=== PATIENT | male | born 1975 | race Two or more races ===

== ENCOUNTER 2020-11-02 11:11 | Emergency (ER) | payer SELFPAY ==
[2020-11-02 11:20] VITALS: BP 134/89; PULSE 89; RESP 18; TEMP 36.9; O2SAT 95; BMI 29.5
--- NOTE | 2020-11-02 11:32 | ED.EYEPROB ---
HPI - Eye Problem General Chief complaint: Eye Problems Stated complaint: EYE ISSUE Time Seen by Provider: 11/02/20 11:21 Source: patient Mode of arrival: ambulatory Limitations: no limitations History of Present Illness HPI Narrative: 45-year-old male who presents emergency department for evaluation of swelling and redness of both eyes, right greater than left. The patient states that he does notice redness and swelling of his left eye x2 days. He states that initially the right eye was slightly red and now the redness is gotten worse, with swelling of the eye. States that initially had a clear discharge but now the discharge is green. He states that the left eye is also red and swollen. He states that he was fishing using worms and ?power bait ?. He states that he dipped to the resin remover the our base and then accidentally splashed some fluid in his right eye the believes that this may be the cause of his infection. He denies rhinorrhea, sore throat, cough, chest pain, shortness of breath, fatigue, fever, chills, myalgias arthralgias. Related Data Previous Rx's Medication Instructions Recorded oxycodone 5 mg PO Q4H PRN #14 tab 11/02/20 prednisone 60 mg PO DAILY 5 Days #15 tab 11/02/20 sulfacetamide sodium [Bleph-10] 1 drp OPHTHALMIC (EYE) Q4H #15 ml 11/02/20 Allergies Allergy/AdvReac Type Severity Reaction Status Date / Time No Known Allergies Allergy Verified 11/02/20 11:21 Review of Systems Review of Systems: Yes all other systems are reviewed and are negative Constitutional: Constitutional: Reports as per HPI Eyes: Eyes: Reports as per HPI ENT: Reports as per HPI Cardiovascular: Cardiovascular: Reports as per HPI Respiratory: Respiratory: Reports as per HPI Gastrointestinal: Gastrointestinal: Reports as per HPI Genitourinary: Genitourinary: Reports as per HPI Musculoskeletal: Musculoskeletal: Reports as per HPI Integumentary/Breasts: Skin/Breast: Reports as per HPI Neurologic: Reports as per HPI Psychiatric: Psychiatric: Reports as per HPI Allergic/Immunologic: Allergic/Immunologic: Reports as per HPI PMF Past Medical History Attestation statement: The following information was validated with the patient. [facility] Narrative: No significant past medical history. Patient does smoke cigarettes. He occasionally drinks alcohol. He denies drug use. Medical History No known health problems Social History Social History Advance Directives: Yes Advance Directives Information Provided: No Advance Directives on File: No Physical Exam Vital Signs: Vital Signs: Last Vital Signs Temp 98.4 F 11/02/20 11:20 Pulse 89 11/02/20 11:20 Resp 18 11/02/20 11:20 BP 134/89 11/02/20 11:20 Pulse Ox 95 11/02/20 11:20 Body Mass Index 29.5 Const: General: cooperative Nutritional Appearance: average body habitus Orientation/consciousness: oriented to person and oriented to place Limitations: no limitations HENMT: Head: Yes normal to inspection, Yes normocephalic and Yes atraumatic Ears: external ears normal General nose exam: Normal external nose present Face and sinus: Yes normal facial exam Mouth: Normal oral and palatal mucosa present Throat: Yes posterior oropharynx normal Eyes: Alignment and Position: alignment normal Periorbital: periorbital findings normal Eyelids: Yes eyelid abnormality (Swollen right upper eyelid compared to left) Conjunctivae: conjunctival abnormal right conjunctival chemosis, conjunctival injection and discharge and left conjunctival injection and discharge Sclerae: sclerae normal Pupils: Equal, round and reactive pupils present Direct Ophthalmoscopy: normal light reflex Neck: Neck: Yes normal visual inspection and Yes supple Thyroid: Thyroid normal Chest: Chest palpation & inspection: normal inspection of the chest and normal palpation of entire chest wall Resp: Effort & Inspection: normal respiratory effort and able to speak in complete sentences Auscultation: clear to auscultation bilaterally, no crackles, no rales and no rhonchi Cardio: Rate: regular rate Rhythm: regular rhythm Heart sounds: S1 normal heart sound present, S2 normal heart sound present and no murmurs GI: Inspection: Yes normal to inspection Palpation (GI): Soft to palpation, nontender and no guarding Auscultation: normal bowel sounds : General: Yes no CVA tenderness Back/Spine/Pelvis: Back: no CVA tenderness Cervical Spine: normal cervical lordosis Thoracic/Lumbar Spine: thoracic and lumbar spine normal to inspection Skin: General skin exam: no rashes or lesions noted Lesions: no lesions Rashes: no rashes Trauma: no lacerations or abrasions Neuro: General: oriented to person and oriented to place Cranial nerves: Yes CN's II-XII intact bilaterally, Yes Equal, round and reactive pupils present and Yes Bilaterally intact EOM present Cognition (Neuro): normal cognition Motor exam (neuro): 5/5 motor strength present throughout Extrem: Right upper extremity: normal to inspection and full ROM Psych: Appearance: grossly normal and well kempt Mental Status: mental status grossly normal Speech and movement: Normal speech and movement present Affect: normal affect Attitude: cooperative Thought process: Normal thought process present Thought content: Normal thought content present Insight: Good insight present (Psych) Judgement: Good judgement present (Psych) Course Course Course Narrative: 45-year-old male who presents emergency department for evaluation of erythema, swelling and discharge both eyes, right greater than left. Physical examination is consistent with acute conjunctivitis. Patient was started on Bleph 10 1 drop 4 times a day for 10 days. He was also started on oral prednisone 40 mg once a day for 5 days to help reduce the swelling of his conjunctiva. Patient did request pain medications as well and he was prescribed oxycodone [place] PAT search revealed no narcotic prescriptions over 1 year search interval Discharge Plan Discharge Patient Disposition: Home, Self-Care Instructions: Conjunctivitis (ED) Additional Instructions: Use the sulfacetamide sodium eyedrops (Bleph 10) 1 drop every 4 hours to both eyes while you are awake. Use this for 10 days. Take prednisone 20 mg pills, 3 pills once a day for 5 days. This is a strong anti-inflammatory pain medication. Do not take any other anti-inflammatory medications such as ibuprofen, Motrin, Advil, naproxen, Aleve or aspirin. Take Tylenol (acetaminophen) 500 mg pills, 2 pills every 4 to 6 hours as needed for pain. For pain not relieved by Tylenol or prednisone take oxycodone 5 mg pills, 1 pill every 4-6 hours as needed for pain. Oxycodone is a narcotic medication and can be addicting. If your concerned about addiction do not get the medication filled or ask the pharmacist for less pills than prescribed. This medication will make you sleepy. Do not work or drive while taking this medication. Follow-up with our on-call interventional physician in 2 days. Call his office on Wednesday morning to make a follow-up appointment Please return to the emergency department if your symptoms get worse or if you develop any symptoms that are concerning to you. Prescriptions: New sulfacetamide sodium [Bleph-10] 10 % drops 1 drp ophthalmic (eye) Q4H Qty: 15 RF: 0 prednisone 20 mg tablet 60 mg PO DAILY 5 Days Qty: 15 RF: 0 oxycodone 5 mg tablet 5 mg PO Q4H PRN (Reason: pain) Qty: 14 RF: 0 Referrals: Odilon Verde [Physician] - 2 days
== END 2020-11-02 11:59 | disposition home or self-care (01) ==
PROVIDERS: Emergency Provider Emergency Medicine Emergency Medical Services
DX: H10.32 Unspecified acute conjunctivitis, left eye (principal); H57.12 Ocular pain, left eye; Z79.899 Other long term (current) drug therapy
CPT/HCPCS: 99283

== ENCOUNTER 2024-10-30 14:17 | Emergency (ER) | payer SELFPAY ==
--- NOTE | ~2024-10-30 | XR_ITS ---
CLINICAL HISTORY: trauma --- Additional Notes or Special Instructions: 5th finger Radiographs of the [id number] digit, default value views Comparison: None Findings: Nondisplaced fracture of the cyst distal phalanx of the distal aspect. No intra-articular extension. No dislocation. No degenerative change. Bone mineralization is normal. Soft tissue swelling. Impression: Fracture of the 5th distal phalanx. This document has been electronically signed by: Carito Buenrostro MD on 10/30/2024 16:03:48
[2024-10-30 14:22] VITALS: BP 140/97; PULSE 86; RESP 18; TEMP 36.6; O2SAT 98; BMI 27.3
--- NOTE | 2024-10-30 14:24 | ED.GENADULT ---
HPI - General Adult General Chief complaint: Extremity Injury, Upper Stated complaint: L Pinky Injury 10/29/24 Time Seen by Provider: 10/30/24 14:48 Source: patient, RN notes reviewed and old records reviewed Mode of arrival: ambulatory Limitations: no limitations History of Present Illness ED Provider: Roque HPI narrative: 48 year old male presents for evaluation of left 5th finger injury Last night he tripped and injured the tip of the fifth finger There are no wounds, but he is unable to straighten the finger tip He complains of 8/10 pain that is unrelieved with ibuprofen. Denies head strike or loss of consciousness No other complaints or concerns at this time Related Data Previous Rx's ?Medication ?Instructions ?Recorded oxycodone 5 mg tablet 5 mg PO Q4H PRN pain #14 tabs 11/02/20 prednisone 20 mg tablet 60 mg (3 x 20 mg) PO DAILY 5 days 11/02/20 #15 tabs sulfacetamide sodium 10 % eye 1 drp ophthalmic (eye) Q4H #15 mL 11/02/20 drops (Bleph-10) oxycodone 5 mg tablet 5 mg PO Q6H PRN severe pain (scale 10/30/24 score 7-10) #12 tabs Allergies Allergy/AdvReac Type Severity Reaction Status Date / Time No Known Allergies Allergy Verified 10/30/24 14:24 Review of Systems Musculoskeletal: Musculoskeletal: Reports arthralgias, Reports joint swelling, Reports limited range of motion and Reports radiating pain into limb PMFSH Past Medical History Medical History No known health problems Social History Social History Advance Directives: No Advance Directives Information Provided: No Do you have a plan to hurt others: No Plan Physical Exam ED Vital Signs: Vital Signs - 24 hr 10/30/24 14:22 Temperature 98 F Pulse Rate 86 Respiratory Rate 18 Blood Pressure 140/97 H Pulse Oximetry 98 Oxygen Delivery Method Room Air BMI result Body Mass Index 27.3 Const General: healthy appearing, comfortable, no acute distress, alert and awake Nutritional Appearance: well nourished Orientation/consciousness: patient oriented x3 HENMT Head: Yes normocephalic and Yes atraumatic Skin General skin exam: elasticity normal Neuro General: patient oriented x3 Cranial nerves: Yes CN's II-XII intact bilaterally and Yes Bilaterally intact EOM present Cognition (Neuro): normal cognition Extrem Other: The patient is unable to extend the left 5th finger at the D IP joint. There is significant tenderness over this area. No open wounds or lesions. He has full range of motion with flexion to all digits of the left hand. No left wrist tenderness or edema. No scaphoid tenderness Course Course Course Narrative: RME, this is a rapid medical exam performed by David Nevarez please refer to primary provider for complete H&P- 48 year old male presents for evaluation of left 5th finger pain. He tripped last night and injured the finger. He believes it is broken. No wounds. He applied a makeshift splint. Plan for x-ray Medications Administered Discontinued Medications Generic Name Dose Route Start Last Admin Trade Name Freq PRN Reason Stop Dose Admin Oxycodone HCl 5 mg 10/30/24 14:56 10/30/24 15:02 Oxycodone Hcl Immed Release 5 Mg Tablet PO 10/30/24 14:57 5 mg ONCE ONE Administration Medical Decision Making Medical Decision Making [facility] Narrative: 48-year-old male presents for evaluation of a left 5th finger injury. He jammed his finger onto the floor after tripping and falling. Clinically he likely has an extensor tendon injury/laceration. I reviewed the x-ray and did not she any obvious fractures, awaiting radiology confirmation. The patient was splinted with a finger in a completely extended position Differential Diagnosis Differential Diagnoses: The differential diagnosis associated with the presentation includes Extensor tendon laceration Finger fracture Finger dislocation Flexor tendon injury Independent Interpretation I performed an independent interpretation of an: Plain X-Ray Interpretation: Agree with radiology interpretation, distal phalynx fracture Radiology Impression Discussion of test interpretation with radiology: I have reviewed the radiologist's reading. Radiologist Impression: Findings: Nondisplaced fracture of the cyst distal phalanx of the distal aspect. No intra-articular extension. No dislocation. No degenerative change. Bone mineralization is normal. Soft tissue swelling. Impression: Fracture of the 5th distal phalanx. This document has been electronically signed by: Carito Buenrostro MD on 10/30/2024 16:03:48 Discharge Plan Discharge Clinical Impression: Closed injury of tendon of finger excluding thumb with mallet deformity, Finger fracture, left Patient Disposition: Home, Self-Care Instructions: Jammed Finger (ED) Additional Instructions: Your x-ray does show a subtle fracture to the tip of the 5th finger I suspect that you have an injury to the extensor tendon on the back of the finger which is why you can not straighten the finger You need to follow up with Orthopedic, hand surgery. Call tomorrow to schedule an appointment. You should keep the finger splint on in the extended position. Use ibuprofen/Tylenol for pain. You may use oxycodone for more severe breakthrough pain. This may make you drowsy, do not drink alcohol or drive after taking Prescriptions: New oxycodone 5 mg tablet 5 mg PO Q6H PRN (Reason: severe pain (scale score 7-10)) Qty: 12 0RF Rx Instructions: Partial Fill upon patient request. No Action sulfacetamide sodium [Bleph-10] 10 % drops 1 drp ophthalmic (eye) Q4H Qty: 15 0RF Rx Instructions: Apply to both eyes prednisone 20 mg tablet 60 mg PO DAILY 5 Days Qty: 15 0RF oxycodone 5 mg tablet 5 mg PO Q4H PRN (Reason: pain) Qty: 14 0RF Rx Instructions: Patient may request partial fill Referrals: Nichol Hogan MD [Physician] - (left 5th finger, extensor tendon injury) Discharge Date/Time: 10/30/24 15:48 Print Language: Estonian
[2024-10-30] MEDS: oxyCODONE HCl Immed Release 5 MG TABLET PO (15:02)
--- NOTE | 2024-10-30 15:47 | PC.NURSE ---
PT was seen and splinted by triage provider. Aware of need for follow up
== END 2024-10-30 15:48 | disposition home or self-care (01) ==
PROVIDERS: Emergency Provider Emergency Medicine
DX: S62.667A Nondisplaced fracture of distal phalanx of left little finger, initial encounter for closed fracture (principal); S56.408A Unspecified injury of extensor muscle, fascia and tendon of left little finger at forearm level, initial encounter; W23.0XXA Caught, crushed, jammed, or pinched between moving objects, initial encounter; M79.645 Pain in left finger(s); Y93.9 Activity, unspecified; Y92.019 Unspecified place in single-family (private) house as the place of occurrence of the external cause; Y99.9 Unspecified external cause status
CPT/HCPCS: 29130; 73140; 99282; 99283

== ENCOUNTER → 2024-10-30 14:24 | Outpatient (BNV) | payer SELFPAY | PROVIDERS: Emergency Provider Emergency Medicine; Visit Provider Radiology Diagnostic Radiology | DX: M79.645 Pain in left finger(s) (principal) | CPT/HCPCS: 73140 ==